=== PATIENT | female | born 1995 ===

== ENCOUNTER 2019-06-10 09:23 | Emergency (ER) | payer OTHER ==
[2019-06-10] MEDS ORDERED: Ketorolac INJ* 30 MG/ML 1 ML VIAL IM ONE (11:26)
--- NOTE | 2019-06-10 11:30 | UC ---
Back Pain HPI - HPI Summary HPI Summary: 23 y/o female presents to the urgent care c/o RT side lower back pain s/p exercising and and bending suddenly. Pt reports on Thursday night she did her exercises and she went home. She saw a bat flying over and she bended suddenly and her lower back started to hurt. Pain is sharp w/ bending 8/10 on the RT lower side of back radiating to the RT lower leg. She took ibuprofen PO last night to alleviate symptoms, but nothing this morning. Pt denies fever, saddle anesthesia, urinary or fecal incontinence, urinary symptoms, numbness or tingling sensation over the lower extremities, SOB. chest pain,abdominal pain, flank pain, N/V/D. LMP:06/01/2019 w/ regular menstrual cycles and declines test and declines test. - History of Current Complaint Chief Complaint: UCBackPain Stated Complaint: BACK PAIN Time Seen by Provider: 06/10/19 11:16 Hx Obtained From: Patient Hx Last Menstrual Period: 06/01/19 ?: No - declines test Onset/Duration: Gradual Onset, Lasting Days - 1 day, Still Present, Worse Since - this morning when she woke up Timing: Constant Severity Initially: Mild Severity Currently: Moderate Pain Intensity: 8 Pain Scale Used: 0-10 Numeric Back Pain: Is Discrete @ - RT lower back, Radiates To - RT lower leg Character: Spasmodic Aggravating Factor(s): Movement, Lifting, Walking Alleviating Factor(s): Rest Associated Signs And Symptoms: Positive: Negative. Negative: Swelling, Redness , Bruising, Fever, Weakness, Numbness, Tingling, Abdominal Pain, Flank Pain, Bladder Incontinence, Bowel Incontinence, Weight Loss, Pain with Weight Bearing Related History: Similar Episode Dx As - Muscle strain - Allergies/Home Medications Allergies/Adverse Reactions: Allergies Allergy/AdvReac Type Severity Reaction Status Date / Time Penicillins Allergy Rash Verified 06/10/19 09:34 Home Medications: Home Medications Melodetta 24 Fe Chewable Tab 1 tab PO DAILY 06/10/19 [History Confirmed 06/10/19 ] PMH/Surg Hx/FS Hx/Imm Hx Previously Healthy: Yes - Pt denies PMHX - Surgical History Surgical History: Yes Surgery Procedure, Year, and Place: wisdom teeth - Family History Known Family History: Positive: Cardiac Disease, Hypertension, Diabetes - Social History Occupation: Student Lives: With Family Alcohol Use: None Substance Use Type: None Smoking Status (MU): Never Smoked Tobacco Review of Systems All Other Systems Reviewed And Are Negative: Yes Constitutional: Positive: Negative Skin: Positive: Negative Eyes: Positive: Negative ENT: Positive: Negative Respiratory: Positive: Negative Cardiovascular: Positive: Negative Gastrointestinal: Positive: Negative Genitourinary: Positive: Negative Motor: Positive: Negative Neurovascular: Positive: Negative Musculoskeletal: Positive: Decreased ROM - lower back, Other: - RT lower side back pain radiating to the RT lower leg Neurological: Positive: Negative Psychological: Positive: Negative Is Patient Immunocompromised?: No Physical Exam - Summary Physical Exam Summary: Vital Signs Reviewed: Yes Appearance: Well-Appearing, Well-Nourished, obese female sitting in the examining table w/o any apparent distress. Eyes: Positive: Conjunctiva Clear - PERRLA, EOMI. ENT: Positive: Normal ENT inspection, Hearing grossly normal, Pharynx normal, TMs normal, Uvula midline Neck: Positive: Supple, Nontender, No Lymphadenopathy Respiratory: Positive: Chest non-tender, Lungs clear, Normal breath sounds, No respiratory distress Cardiovascular: Positive: RRR, No Murmur, Pulses Normal, Brisk Capillary Refill Abdomen Description: Positive: Nontender, No Organomegaly, Soft. Negative: CVA Tenderness (R), CVA Tenderness (L) Bowel Sounds: Positive: Present Musculoskeletal: Positive: Strength Intact, BACK: Patient walked into the urgent care room with symmetric ambulation, No signs of limping, antalgic, able to bear weight. No signs of trauma, No masses palpated. Point tenderness at the level of L5-S1w/ RT side paraspinal muscle tenderness and spasm at the same level. No CVAT, no flank ecchymosis . No sacroiliac notch tenderness, No saddle anesthesia.ROM: limited due to pain, Straight Leg Raise: negative. Patellar reflexes: brisk, symmetric Muscle strength lower extremities. Dorsiflexion/ plantar flexion of ankles. Heel/ toe walk. Lower extremities: Femoral, popliteal , posterior tibial, and dorsalis pedis pulses WNL. Pt refuse rectal exam Neurological: Positive: Alert, Muscle Tone Normal Psychological Exam: Normal Skin Exam: Normal Triage Information Reviewed: Yes Vital Signs: Initial Vital Signs Temp 98 F 06/10/19 09:31 Pulse 81 08/30/19 09:31 Resp 18 06/10/19 09:31 BP 108/71 06/10/19 09:31 Pulse Ox 100 06/10/19 09:31 Back Pain Course/Dx - Course Course Of Treatment: 23 y/o female presents to the urgent care c/o RT side lower back pain s/p exercising and and bending suddenly. Pt reports on Thursday night she did her exercises and she went home. She saw a bat flying over and she bended suddenly and her lower back started to hurt. Pain is sharp w/ bending 05/21 on the RT lower side of back radiating to the RT lower leg. She took ibuprofen PO last night to alleviate symptoms, but nothing this morning. Pt denies fever, saddle anesthesia, urinary or fecal incontinence, urinary symptoms, numbness or tingling sensation over the lower extremities, SOB. chest pain,abdominal pain, flank pain, N/V/D. LMP:05/25/2019 w/ regular menstrual cycles. Hx obtained. Pt hemodynamically stable, vitals: WNL. PE: Point tenderness at the level of the L5 -S1 w/ RT side paraspinal muscle spasm and point tenderness at the same level on examination. Lumbosacral X-ray ordered, Impression: No acute osseous injury observed, moderate stool volume on the ascending and transverse colon. Toradol IM inj ordered at the clinic. Given by nurse. Pt tolerated well medication pain decrease. Pt states she has been sonstipated for the past 2 days. Pt Rx Naproxen PO, flexeril PO and Miralax to alleviate symptoms. Patient was instructed to the f/u with orthopedic from Sports Medicine if symptoms do not improve or worsen. Patient understands and agrees. Patient is able to ambulate freely w/o aid or limp. Plan of care was discussed with the patient and patient understands and agrees. All questions were answered at patient satisfaction. Pt left clinic hemodynamically stable. - Differential Dx/Diagnosis Differential Diagnosis/HQI/PQRI: Compressive Cord Syndrome, Herniated Disc, Strain, Sprain, Other Provider Diagnosis: Muscle spasm, Low back strain, Constipation Discharge ED - Sign-Out/Discharge Documenting (check all that apply): Patient Departure - d/c home All imaging exams completed and their final reports reviewed: Yes - Discharge Plan Condition: Stable Disposition: HOME Prescriptions: Cyclobenzaprine TAB* [Flexeril 10 MG TAB*] 10 mg PO TID PRN #21 tab PRN Reason: Spasms - Back Naproxen TAB* [Naprosyn 250 mg TAB*] 250 mg PO Q8H PRN #30 tab PRN Reason: Pain - Moderate Polyethylene Glycol 3350* [Miralax*] 17 gm PO DAILY #1 packet Patient Education Materials: Constipation (ED), Low Back Strain (ED) Forms: *Work Release Referrals: [facility] [place] [facility] [place] [facility] [place]] - 3 Days [facility] [Provider Group] - 3 Days Additional Instructions: 1- Please take Naproxen PO as directed after meals for pain. Starting tomorrow since you were givne a Toradol IM inj today. You can take Tylenol PO q6-8hr sprn today for pain 2- Take Flexeril PO as directed for muscle spasm. Please do not drive while taking the medication. 3- Wear a back support. Avoid strenuous exercise of heavy lifting. 4- Take Miralax as directed to alleviate constipation. Increase fluid intake, eat soft meals and as your symptoms improve advance to your regular diet. Then start eating fiber in your diet 5- Please follow up with Orthopedic Dr from Sports Medicine or your PCP in 3 week if not improvement of symptoms, for further management. - Billing Disposition and Condition Condition: STABLE Disposition: Home
[2019-06-10] MEDS ORDERED: Ondansetron ODT TAB* 4 MG PO ONE (11:44)
== END 2019-06-10 12:30 | disposition home or self-care (01) ==
LOC: UCEAST 09:23
DX: S39.012A Strain of muscle, fascia and tendon of lower back, initial encounter (principal); X50.0XXA Overexertion from strenuous movement or load, initial encounter; Y93.B9 Activity, other involving muscle strengthening exercises; Y92.9 Unspecified place or not applicable; Y99.8 Other external cause status; K59.00 Constipation, unspecified; M62.830 Muscle spasm of back; Z88.0 Allergy status to penicillin
CPT/HCPCS: 72110; 99202; A9270-GY; G0463; J1885